=== PATIENT | female | born 2000 | race Caucasian/White ===

== ENCOUNTER 2021-10-04 14:22 | Emergency (ER) | payer SELFPAY ==
[2021-10-04 14:40] VITALS: BP 131/72; PULSE 96; RESP 18; TEMP 37.1; O2SAT 100; BMI 25.4
[2021-10-04 15:00] LABS: UTC Pregnancy Test, Urine Negative (Negative)
--- NOTE | 2021-10-04 15:09 | HMH.EDUTC ---
[facility] [place] Disposition Clinical Impression: Negative test Disposition: Home, Self-Care Condition on Discharge: Good Instructions: Absent Periods Additional Instructions: Follow up with Family Doctor if no improvement or any worsening of symptoms Return if needed Straight to ER if any life threatening symptoms Referrals: Provider,Referral, MD [Primary Care Provider] - As needed Time of Disposition: 15:47 Medical Decision Making - Topher Inquiry Pt receiving controlled substance: No Topher was queried for this patient: No Vital Signs: 10/04/21 14:40 Temperature 98.7 F Temperature Source Oral Pulse Rate [Right Brachial] 96 H Respiratory Rate 18 Blood Pressure [Right Arm] 131/72 Blood Pressure Mean [Right Arm] 91 Blood Pressure Source [Right Arm] Automatic Cuff Blood Pressure Position [Right Arm] Sitting 02 Sat by Pulse Oximetry 100 Oxygen Delivery Method Room Air - Lab Data Lab results reviewed: Yes: I reviewed the patient's lab results. Lab Results 10/04/21 14:43: [facility] Negative 10/04/21 14:56: Serum HCG, Qual Negative Medical Decision Narrative: lab contacted about ordered beta HCG and advised it may be up to an hour before finished awaiting results [facility] [place] HPI - General Stated complaint: test Time Seen by Provider: 10/04/21 15:09 Mode of Arrival: Ambulatory Source of Information: Patient Limitations: No Limitations Description of Symptoms (Recalled from Triage Doc. by RN): PATIENT REQUESTING BLOOD TEST. REPORTS SHE TOOK AN AT HOME TEST AND IT WAS POSITIVE. HER LAST PERIOD WAS IN APRIL, BUT SHE STATES SHE IS IRREGULAR HEENT Symptoms (Recalled from RN notes): No Resp Symptoms (Recalled from RN notes): No Skin Symptoms (Recalled from RN notes): No MS Symptoms (Recalled from RN notes): No Functional Status (Recalled from RN notes): WNL - History of Present Illness Provider Complaint: Patient states that she took home test and it was positive so she came in wanting to get checked here States that last period was in April but her periods are irregular - Related Data Allergies Allergy/AdvReac Type Severity Reaction Status Date / Time No Known Allergies Allergy Verified 10/04/21 15:00 - Worker's Comp Is this a Worker's Comp case?: No [facility] History - Hepatitis A Screen Drug use history?: No High risk sexual behaviors?: No History of sexually transmitted infection?: No Currently employed?: No Childcare worker?: No Do you have indoor plumbing?: Yes Do you have electricity?: Yes Attestation statement:: This patient has been screened for Hepatitis A risk factors. I have reviewed the patient's past medical history: Yes - Social History Alcohol Intake: never Occupational Status: other ROS Obtained: Yes All systems reviewed & no additional complaints, Yes Systems reviewed as appropriate & no additional complaints - Constitutional Constitutional: Reports system reviewed and no additional complaints, except as docu, Denies body ache, Denies chills, Denies fever(s) - ENT Ears, Nose, Mouth, and Throat: Reports system reviewed and no additional complaints, except as docu - Cardiovascular Cardiovascular: Reports system reviewed and no additional complaints, except as docu - Respiratory Respiratory: Reports system reviewed and no additional complaints, except as docu - Gastrointestinal Gastrointestingal: Reports: system reviewed and no additional complaints, except as docu - Genitourinary Female Genitourinary: Reports system reviewed and no additional complaints, except as docu, Reports abnormal menses, Reports absent period Physical Exam - General General appearance: alert, in no apparent distress - ENT ENT exam: Present: normal exam, normal oropharynx, mucous membranes moist, TM's normal bilaterally, normal external ear exam - Chest Chest inspection: Present: normal inspection, symmetric chest wall rise. Absent: ten
[2021-10-04 15:44] LABS: HCG Qualitative, Serum Negative (Negative)
[2021-10-04 15:45] VITALS: BP 131/72; PULSE 96; RESP 18; TEMP 37.1; O2SAT 100
== END 2021-10-04 15:49 | disposition home or self-care (01) ==
PROVIDERS: Emergency Provider Nurse Practitioner
DX: N91.2 Amenorrhea, unspecified (principal); Z32.02 Encounter for pregnancy test, result negative
CPT/HCPCS: 81025; 84703; 99203; G0463